=== PATIENT | female | born 1995 | race Hispanic/Latino ===

== ENCOUNTER → 2018-03-13 | Outpatient (REF) | payer SELFPAY, OTHER | LOC: M SFHCLERA 09:38 | DX: R30.0 Dysuria (principal) ==

== ENCOUNTER → 2019-01-30 | Outpatient (REF) | payer OTHER ==
[2019-01-30 22:55] LABS: CHLAMYDIA DNA AMPLIFICATION NEGATIVE (NEGATIVE); GC DNA AMPLIFICATION NEGATIVE (NEGATIVE)
== END ==
LOC: M SFHCLERA 12:07
PROVIDERS: ATTEND Nurse Practitioner Family
DX: R30.0 Dysuria (principal)

== ENCOUNTER → 2019-02-18 | Outpatient (CLI) | payer MEDICAID, SELFPAY ==
--- NOTE | 2019-02-19 10:52 | REP ---
Clinical: Anatomical evaluation. Comparison: None . Findings: Examination demonstrates a single live intrauterine in cephalic presentation. motion is identified by technologist. Placenta is noted fundal and grade zero without evidence for placenta previa or abruption. Amniotic fluid volume is normal. Cervix measures 4.6 cm in length and appears closed. No evidence for nuchal cord. Gestational age by LMP 19 weeks 5 days with GERTRUDE 07/10/2019 . Gestational age by current measurements 19weeks 6 days with GERTRUDE 07/09/2019 . FHR equals 144 beats per minute. BPD 4.5 cm 19 weeks 4 days HC 16.6 cm 19 weeks 2 days AC 15.1 cm 20 weeks 2 days FL 3.2 cm 19 weeks 6 days HL 3.1 cm 20 weeks 2 days HC/AC ratio 1.10 Estimated weight 329 grams ( 59th percentile). Anatomical assessment demonstrates normal structures including cranium, choroid plexus, cavum, cerebellum/posterior fossa, diaphragm, stomach, cord insertion/three-vessel cord, kidneys/bladder, spine, and extremities. Limited evaluation of the facial features, lungs, and heart/ventricular outflow tracts Impression: Single live intrauterine demonstrating appropriate interval growth. Anatomical limitations as noted above. Remainder examination appears normal. Electronically Signed by Dwayne Roy MD 02/19/2019 10:44 A
== END ==
LOC: M RAD 08:49
PROVIDERS: ATTEND Advanced Practice Midwife
DX: Z34.02 Encounter for supervision of normal first pregnancy, second trimester (principal); Z3A.19 19 weeks gestation of pregnancy